=== PATIENT | male | born 1940 | race Two or more races ===

== ENCOUNTER 2020-03-10 19:54 | Inpatient (IN) | payer OTHER ==
[~2020-03-10] VITALS: Ht 162.6 cm; Wt 65.9 kg
[2020-03-10 20:01] VITALS: BP_SYST 134
[2020-03-10] MEDS ORDERED: NS 500 ML IV ONE (20:30)
[2020-03-10 21:04] LABS: BASOPHILS % (AUTO) 0.3 % (0.0-2.0); EOSINOPHILS # (AUTO) 0.1 K/uL (0.0-0.4); EOSINOPHILS % (AUTO) 0.7 % (0.0-4.0); LYMPHOCYTES # (AUTO) 1.6 K/uL (1.0-5.5); MEAN CORPUSCULAR HEMOGLOBIN 34 pg (27-31); MEAN CORPUSCULAR HGB CONC 35 % (32-36); MEAN CORPUSCULAR VOLUME 96 fL (79.0-98.0); MONOCYTES # (AUTO) 0.7 K/uL (0.0-1.0); MONOCYTES % (AUTO) 8.3 % (1.7-9.3); NEUTROPHILS # (AUTO) 5.7 K/uL (1.8-7.7); NEUTROPHILS % (AUTO) 70.7 % (40.0-70.0); PLATELET COUNT (AUTO) 179 K/uL (130-430); RED BLOOD CELL COUNT(AUTO) 3.85 MIL/uL (4.2-6.2); RED CELL DISTRIBUTION WIDTH 13.2 % (9.0-15.0); WHITE BLOOD COUNT (AUTO) 8.1 K/uL (4.8-10.8)
[2020-03-10 21:11] LABS: ANION GAP 9 (5-15); CALCIUM 8.5 mg/dL (8.4-11.0); CHLORIDE 94 mmol/L (98-107); CREATININE 0.87 mg/dL (0.55-1.30); GLUCOSE 177 mg/dL (70-99); POTASSIUM 3.1 mmol/L (3.5-5.1); SODIUM SERUM 132 mmol/L (136-145); UREA NITROGEN, BLOOD 16 mg/dL (8-21)
[2020-03-10 21:15] LABS: PROTHROMBIN TIME 10.2 SECS (9.5-12.5)
[2020-03-10 21:17] LABS: ALANINE AMINOTRANSFERASE 13 U/L (12-78); ALBUMIN 3.5 g/dL (3.4-4.8); ASPARTATE AMINOTRANSFERASE 18 U/L (10-37); TOTAL BILIRUBIN 0.4 mg/dL (0.0-1.0)
[2020-03-10] MEDS ORDERED: POTASSIUM CHLORIDE 20 MEQ TAB.PRT.SR PO ONE (21:30)
[2020-03-10] MEDS ORDERED: BISACODYL 10 MG/SUPPOSITORY RC ONE (22:45)
[2020-03-10 22:50] LABS: BILIRUBIN,URINE NEGATIVE (NEGATIVE); BLOOD, URINE NEGATIVE (NEGATIVE); CLARITY/URINE CLEAR (CLEAR); COLOR,URINE YELLOW (YELLOW); GLUCOSE,URINE NEGATIVE (NEGATIVE); KETONES,URINE TRACE (NEGATIVE); LEUKOCYTE ESTERASE ,URINE NEGATIVE (NEGATIVE); NITRITE, URINE NEGATIVE (NEGATIVE); PROTEIN URINE NEGATIVE (NEGATIVE); UROBILINOGEN,URINE 0.2 (0.2-1.0)
[2020-03-10] MEDS ORDERED: EZET1TAB26 PO (22:52)
[2020-03-10] MEDS ORDERED: AMLO5TAB4 PO (22:52)
[2020-03-10] MEDS ORDERED: METO-442 PO (22:52)
[2020-03-10] MEDS ORDERED: MIRA50TA PO (22:52)
[2020-03-10] MEDS ORDERED: CARB1TAB21 PO ×2 (22:52)
[2020-03-10] MEDS: D5/0.45 NS 1,000 ML IV SCH (23:13)
[2020-03-11] MEDS ORDERED: BISACODYL 10 MG/SUPPOSITORY RC ONE (01:03)
[2020-03-11 02:55] VITALS: BP_SYST 142
[2020-03-11] MEDS ORDERED: SODIUM PHOSPHATE,MONO-DIBASIC 133 ML ENEMA RC ONE (08:00)
[2020-03-11 08:38] LABS: BASOPHILS % (AUTO) 0.5 % (0.0-2.0); EOSINOPHILS # (AUTO) 0.1 K/uL (0.0-0.4); EOSINOPHILS % (AUTO) 0.5 % (0.0-4.0); HEMATOCRIT 38.6 % (36-54); HEMOGLOBIN 13.5 g/dL (14.0-18.0); LYMPHOCYTES # (AUTO) 1.6 K/uL (1.0-5.5); LYMPHOCYTES % (AUTO) 15.9 % (20.5-51.5); MEAN CORPUSCULAR HEMOGLOBIN 34 pg (27-31); MEAN CORPUSCULAR HGB CONC 35 % (32-36); MEAN CORPUSCULAR VOLUME 96 fL (79.0-98.0); MONOCYTES % (AUTO) 9.8 % (1.7-9.3); NEUTROPHILS # (AUTO) 7.3 K/uL (1.8-7.7); NEUTROPHILS % (AUTO) 73.3 % (40.0-70.0); PLATELET COUNT (AUTO) 172 K/uL (130-430); RED BLOOD CELL COUNT(AUTO) 4.03 MIL/uL (4.2-6.2); RED CELL DISTRIBUTION WIDTH 13.2 % (9.0-15.0)
[2020-03-11 09:00] VITALS: BP_SYST 155
[2020-03-11 09:14] LABS: ALANINE AMINOTRANSFERASE 17 U/L (12-78); ALBUMIN 3.8 g/dL (3.4-4.8); ANION GAP 9 (5-15); ASPARTATE AMINOTRANSFERASE 23 U/L (10-37); CALCIUM 8.4 mg/dL (8.4-11.0); CHLORIDE 94 mmol/L (98-107); CREATININE 0.72 mg/dL (0.55-1.30); GLUCOSE 126 mg/dL (70-99); POTASSIUM 3.3 mmol/L (3.5-5.1); SODIUM SERUM 131 mmol/L (136-145); TOTAL BILIRUBIN 0.5 mg/dL (0.0-1.0); UREA NITROGEN, BLOOD 11 mg/dL (8-21)
[2020-03-11 12:38] VITALS: BP_SYST 159
[2020-03-11] MEDS ORDERED: MILK OF MAGNESIA 30 ML UDC PO ONE (14:45)
[2020-03-11] MEDS ORDERED: amLODIPine BESYLATE 5 MG TABLET PO ONE (15:15)
[2020-03-11] MEDS: CARBIDOPA/LEVODOPA 25/100 MG TABLET PO SCH ×2 (16:28→22:19)
[2020-03-11 16:40] VITALS: BP_SYST 160
[2020-03-11] MEDS: D5/0.45 NS 1,000 ML IV SCH (18:15)
[2020-03-11 20:15] VITALS: BP_SYST 142
[2020-03-11] MEDS ORDERED: SIMVASTATIN 20 MG TABLET PO SCH (21:00)
[2020-03-11] MEDS ORDERED: EZETIMIBE 10 MG TABLET PO SCH (21:00)
[2020-03-11] MEDS ORDERED: CARBIDOPA/LEVODOPA 25/100 MG TABLET PO SCH (21:00)
[2020-03-11] MEDS: METOPROLOL TARTRATE 50 MG TABLET PO SCH (22:21)
[2020-03-12 00:15] VITALS: BP_SYST 138
[2020-03-12 09:00] VITALS: BP_SYST 137
[2020-03-12] MEDS ORDERED: amLODIPine BESYLATE 5 MG TABLET PO SCH (09:00)
[2020-03-12] MEDS: CARBIDOPA/LEVODOPA 25/100 MG TABLET PO SCH ×2 (10:14→13:57)
[2020-03-12] MEDS: METOPROLOL TARTRATE 50 MG TABLET PO SCH (10:15)
[2020-03-12 13:00] VITALS: BP_SYST 139
[2020-03-12] MEDS ORDERED: MOM PO ×2 (13:43→13:44)
[2020-03-12 13:49] VITALS: BP_SYST 139
== END 2020-03-12 14:40 | disposition home or self-care (01) | DRG 312 ==
LOC: SED 19:54 → OBSVTOIN 22:08 → STU 22:08
PROVIDERS: ADMIT Internal Medicine Nephrology; ATTEND Internal Medicine Nephrology
DX: R55 Syncope and collapse (principal); E87.1 Hypo-osmolality and hyponatremia; E78.5 Hyperlipidemia, unspecified; I10 Essential (primary) hypertension; K59.09 Other constipation; G20 Parkinson's disease; F02.80 Dementia in other diseases classified elsewhere, unspecified severity, without behavioral disturbance, psychotic disturbance, mood disturbance, and anxiety; S09.90XA Unspecified injury of head, initial encounter; Z74.01 Bed confinement status; Z99.3 Dependence on wheelchair; X58.XXXA Exposure to other specified factors, initial encounter; Y93.89 Activity, other specified; Y92.89 Other specified places as the place of occurrence of the external cause; Y99.8 Other external cause status
CPT/HCPCS: 36415; 70450-TC; 71045; 76376; 80053; 81003; 83605; 83690-TC; 83735-TC; 84484; 85025; 85610-TC; 85730-TC; 87040-TC; 87086; 93005; 93306; 96360; G0378; J7040